=== PATIENT | female | born 2000 | race Caucasian/White ===

== ENCOUNTER 2019-10-18 17:32 | Emergency (ER) | payer OTHER, BC, SELFPAY ==
--- NOTE | ~2019-10-18 | XR_ITS ---
EXAMINATION: XR humerus LT DATE: 10/18/2019 17:55 INDICATION: Left upper arm pain. TECHNIQUE: 2 views of left humerus were obtained. COMPARISON: None. FINDINGS: Bone alignment is normal. No fracture. Joint spaces are well maintained. IMPRESSION: 1. Normal left humerus. Reviewed, dictated and finalized at location A. IMPRESSION: 1. Normal left humerus.
[2019-10-18 17:42] VITALS: BP 152/70; PULSE 96; RESP 24; TEMP 37.6; O2SAT 100
--- NOTE | 2019-10-18 17:58 | ED.UPPEXIN ---
HPI - Extremity Injury (Upper) General Chief Complaint: Extremity Injury, Upper Stated Complaint: left arm injury Time Seen by Provider: 10/18/19 18:00 Source: patient and RN notes reviewed History of Present Illness HPI narrative: Patient is a 19-year-old female who presents the urgent care with complaints of left arm pain extending from the left elbow to the left shoulder. Patient states that yesterday she fell sideways directly onto the left arm. Patient has been using Tylenol without much improvement of pain. No other acute complaints or injuries. Denies hitting her head or any loss of consciousness. No acute distress noted. Patient read the plan of care. Related Data Allergies Allergy/AdvReac Type Severity Reaction Status Date / Time No Known Allergies Allergy Unverified 02/12/15 15:26 Review of Systems Review of Systems: Narrative: CONSTITUTIONAL: Denies fever, chills, or sweats. EYES: Denies visual changes, redness, or discharge. ENT: Denies rhinorrhea, congestion, sore throat, or otalgia. CARDIOVASCULAR: Denies chest pain, palpitations, or edema. RESPIRATORY: Denies cough or dyspnea. GASTROINTESTINAL: Denies abdominal pain, nausea, vomiting, or diarrhea. GENITOURINARY: Denies dysuria or hematuria. SKIN: Denies rash or itching. MUSCULOSKELETAL: Reports of left upper arm pain NEUROLOGIC: Denies headache, numbness, or weakness. All other systems reviewed are negative, except as documented in HPI. PMFSH Comments At the time of my signature, I reviewed and agree with the nursing past medical, surgical, social, and family history. There is no relevant family history pertinent to the patient complaint. Exam Narrative: Exam Narrative: GENERAL: This is a well-nourished, well-developed patient, in no apparent distress. HEAD: normocephalic, atraumatic. EYES: PERRL. Sclera clear/white. Vision is grossly intact. EARS: External ears normal, NOSE: External nose normal with no obvious nasal discharge, nares without redness, no rhinorrhea. THROAT: Mucous membranes moist NECK: Neck supple SKIN: warm, intact with no suspicious lesions or rash, good texture and turgor. NEURO: awake, alert, and oriented to person, place and time. There were no obvious focal neurologic abnormalities. EXTREMITIES: No obvious deformity or fracture noted to the left upper arm. Range of motion within normal limits with mild pain. No pain with palpation to the humerus. Positive strong left radial pulse with capillary refill less than 2 seconds. Course Vital Signs Vital signs: Vital Signs Temperature 99.7 F H 10/18/19 17:42 Pulse Rate 96 10/18/19 17:42 Respiratory Rate 24 H 10/18/19 17:42 Blood Pressure 152/70 H 10/18/19 17:42 Pulse Oximetry 100 10/18/19 17:42 Temperature 99.7 F H 10/18/19 17:42 Pulse Rate 96 10/18/19 17:42 Respiratory Rate 24 H 10/18/19 17:42 Blood Pressure 152/70 H 10/18/19 17:42 Pulse Oximetry 100 10/18/19 17:42 Reviewed?patient is informed that they may have pre-hypertension or hypertension based on a blood pressure reading in the department. I recommend the patient call the primary care provider listed on their discharge instructions or a physician of their choice this week to arrange follow-up for further evaluation of possible pre-hypertension or hypertension. MDM - Extremity Injury (Upper) MDM Narrative Medical decision making narrative: Reviewed x-ray results with the patient. She is aware the x-ray was negative for any notable fracture or abnormality. Advised the patient to practice steady range of motion exercises to the left arm and use Tylenol/ibuprofen as needed for pain. Use ice as needed for comfort. Avoid any heavy lifting or strenuous activity involving the left arm until activity as tolerated as normal. Follow-up with your PCP within 2 to 5 days if her worsening symptoms or failure to improve. Differential Diagnosis Differential diagnosis: Likely dislocation of shoulder, fracture of hum
== END 2019-10-18 18:15 | disposition home or self-care (01) ==
PROVIDERS: Emergency Provider Nurse Practitioner Family; PCP Pediatrics
DX: M79.622 Pain in left upper arm (principal)
CPT/HCPCS: 73060; 99213; G0463